=== PATIENT | male | born 1945 | race Caucasian/White ===

== ENCOUNTER → 2018-03-25 | Outpatient (REF) | payer MEDICARE, OTHER ==
[2018-03-25 14:16] LABS: FERRITIN 132 NG/ML (26-388); IRON (FE) 45 UG/DL (65-175); PERCENT SATURATION 12.3 % (19.7-50.0); TOTAL IRON BINDING CAPACITY 367 UG/DL (250-450)
== END ==
LOC: M LAB REF 13:48
DX: N18.3 Chronic kidney disease, stage 3 (moderate) (principal); D63.1 Anemia in chronic kidney disease
CPT/HCPCS: 83550

== ENCOUNTER → 2018-04-03 | Outpatient (CLI) | payer MEDICARE, OTHER | LOC: M RAD 14:33 | DX: N18.3 Chronic kidney disease, stage 3 (moderate) (principal) | CPT/HCPCS: 76775 ==

== ENCOUNTER 2020-03-14 17:16 | Inpatient (IN) | payer MEDICARE, OTHER ==
[~2020-03-14] VITALS: Ht 177.8 cm; Wt 120.3 kg
[2020-03-14 19:03] LABS: HEMATOCRIT 36.6 % (42.0-52.0); HEMOGLOBIN 11.5 g/dl (13.5-17.5); MEAN CORPUSCULAR HGB CONC 31.4 g/dl (32.0-36.5); MEAN CORPUSCULAR VOLUME 92.4 fl (80.0-96.0); RED BLOOD COUNT 3.96 10^6/uL (4.30-6.10); WHITE BLOOD COUNT 6.7 10^3/uL (4.0-10.0)
[2020-03-14 19:23] LABS: PLATELET COUNT, AUTOMATED 97 10^3/uL (150-450)
[2020-03-14 19:32] LABS: ALBUMIN 3.9 GM/DL (3.2-5.2); ALT/SGPT 27 U/L (12-78); BILIRUBIN,DIRECT 0.3 MG/DL (0.0-0.2); BILIRUBIN,TOTAL 1.2 MG/DL (0.2-1.0); BLOOD UREA NITROGEN 28 MG/DL (7-18); CALCIUM LEVEL 9.6 MG/DL (8.8-10.2); CARBON DIOXIDE LEVEL 29 MEQ/L (21-32); CHLORIDE LEVEL 108 MEQ/L (98-107); CK-MB VALUE MASS 6.3 NG/ML (<3.6); CPK CREATINE PHOSPHOKINASE 245 U/L (39-308); CREATININE FOR GFR 1.73 MG/DL (0.70-1.30); GLOMERULAR FILTRATION RATE 41.3 (>42); GLUCOSE, FASTING 125 MG/DL (70-100); MB/CK RELATIVE INDEX 2.57 (< OR =4); NT-PRO BNP 919 PG/ML (<125); POTASSIUM SERUM 3.9 MEQ/L (3.5-5.1); SODIUM LEVEL 143 MEQ/L (136-145); TOTAL PROTEIN 7.3 GM/DL (6.4-8.2); TROPONIN I < 0.02 NG/ML (< 0.10)
[2020-03-14] MEDS ORDERED: DICL1GEL3 TOP ×2 (20:14→23:23)
[2020-03-14] MEDS ORDERED: KETO0.02 OP (20:14)
[2020-03-14] MEDS ORDERED: LOSA50TA88 PO (20:14)
[2020-03-14] MEDS ORDERED: ATEN50TA2 PO (20:14)
[2020-03-14] MEDS ORDERED: PIOG1TAB55 PO (20:14)
[2020-03-14] MEDS ORDERED: HYDR25TAB PO (20:14)
[2020-03-14] MEDS ORDERED: GLIP10TA PO (20:14)
[2020-03-14] MEDS ORDERED: B-12100021 PO (20:14)
[2020-03-14] MEDS ORDERED: LOSA100T50 PO (20:14)
[2020-03-14] MEDS ORDERED: FLOM0.4C39 PO (20:14)
[2020-03-14] MEDS ORDERED: LOSARTAN 50MG TABLET PO SCH (21:00)
--- NOTE | 2020-03-14 21:05 | REPVR ---
PROCEDURE INFORMATION: Exam: CT Chest Without Contrast Exam date and time: 03/14/2020 8:34 PM Age: 74 years old Clinical indication: Chest pain; Additional info: SOB, elevated bnp TECHNIQUE: Imaging protocol: Computed tomography of the chest without contrast. 3D rendering: MIP and/or 3D reconstructed images were created by the technologist. Radiation optimization: All CT scans at this facility use at least one of these dose optimization techniques: automated exposure control; mA and/or kV adjustment per patient size (includes targeted exams where dose is matched to clinical indication); or iterative reconstruction. COMPARISON: No relevant prior studies available. FINDINGS: Lungs: Patchy consolidation in the left lung base and mild basilar atelectasis. Pleural space: There are moderate bilateral pleural effusions. No pneumothorax. Calcified pleural plaques are noted in both hemithoraces. Heart: Advanced coronary artery atherosclerotic disease. Normal heart size. No pericardial effusion. Aorta: Unremarkable. No aortic aneurysm. Lymph nodes: Unremarkable. No enlarged lymph nodes. Bones/joints: There are advanced degenerative changes in the spine and pelvis. Soft tissues: Unremarkable. IMPRESSION: 1. Moderate bilateral pleural effusions with left basilar airspace consolidation. 2. Advanced coronary artery atherosclerotic disease. Electronically signed by: Rayshawn Tucker On 03/14/2020 21:04:57 PM
[2020-03-14 22:30] LABS: ABG BASE EXCESS 0.2 (-2.0-2.0); ABG HCO3 25.1 MEQ/L (22.0-26.0); ABG O2 SATURATION 94.1 % (95.0-99.0); ABG PARTIAL PRESSURE CO2 41.9 mmHg (35.0-45.0); ABG PARTIAL PRESSURE O2 73.7 mmHg (75.0-100.0); ABG STANDARD HCO3 24.6 MEQ/L (22.0-26.0); ABG TOTAL CO2 26.4 MEQ/L (23.0-31.0); ABG pH (ARTERIAL) 7.396 UNITS (7.350-7.450)
[2020-03-14] MEDS ORDERED: MOM 30ML SUSPENSION UDC PO PRN (23:00)
[2020-03-14] MEDS ORDERED: FUROSEMIDE 100MG/10ML VIAL (J1940) IV ONE (23:00)
[2020-03-14] MEDS: HumaLOG INSULIN (NovoLOG) PER UNIT SC SCH (23:12)
[2020-03-14] MEDS ORDERED: DEXTROSE 50% 50 ML SYRINGE IV PRN (23:15)
[2020-03-14] MEDS ORDERED: GLUCAGON INJ 1MG VIAL SC PRN (23:15)
[2020-03-14] MEDS ORDERED: GLUCOSE 4GM CHEW TABLET PO PRN (23:15)
[2020-03-14] MEDS ORDERED: KETO0.02 OU (23:23)
[2020-03-14] MEDS ORDERED: [UNRECOGNIZED DRUG - CODE] PO (23:23)
[2020-03-14 23:48] VITALS: BP 161/74
[2020-03-15] MEDS ORDERED: LevoFLOXacin IV 500 MG in IV 1 EA IV ONE (00:15)
[2020-03-15] MEDS: atenoloL 50 MG TAB PO SCH ×3 (00:22→20:24)
--- NOTE | 2020-03-15 00:48 | HPEPDOC ---
General Date of Admission 03/14/20 Date of Service: Mar 14, 2020 Chief Complaint The patient is a 74-year-old male admitted with a reason for visit of General Med Complaint. History of Present Illness 74 year old male with PMH of CML, Morbid obesity, SWATHI on CPAP, Chronic hypoxic respiratory failure, Dm, Hypertension, CAD , Hyperlipidemia, BPH, vit B[facility], spends his rubio in [place] came up from [place] on January 13 and was then at his usual state of health. He had a sleep study in Oct at [place] and got a new CPAP machine with oxygen at night with the CPAP. He has been using CPAP since 2002 with oxygen for several years. He started having progressively increasing SOB on exertion for the past 1 month. He was unable to do any yard work any more even walking around the house made him SOB. This was not associated with chest pain or cough. He [facility] then about 3 weeks ago people from the oxygen company came to his home and walked him about and checked his oxygen levels. He reported it had gone down to 84%- 85%. Then he was started on oxygen during the day. However he was given only small tanks which would not last for more than 1 hour so he has been able to go out anywhere as removing the oxygen made him very SOB within a few minutes. As his symptoms has continued to worsen inspite of using oxygen 24 x 7 he went to the urgent care. There CXR showed bilateral pleural effusion so was sent to ED for evaluation. CT chest in the ED showed Moderate bilateral pleural effusions with bilateral atelectasis and left basilar airspace consolidation, Advanced coronary artery atherosclerotic disease. Labs showed elevated creatinine at 1.7, platelet of 97. He was admitted for acute CHF and possibly left lower lobe pneumonia. Home Medications Scheduled Atenolol (Atenolol) 50 Mg Tablet, 50 MG PO BID, (Reported) Cyanocobalamin (Vitamin B-12) (B-12) 1,000 Mcg Tablet, 1,000 MCG PO DAILY, (Reported) Dasatinib (Sprycel) 50 Mg Tablet, 50 MG PO QHS, (Reported) Furosemide (Furosemide) 40 Mg Tablet, 40 MG PO DAILY Glipizide (Glipizide) 10 Mg Tablet, 10 MG PO BID, (Reported) Hydrochlorothiazide (Hydrochlorothiazide) 25 Mg Tablet, 12.5 MG PO DAILY, (Reported) Ketotifen Fumarate (Ketotifen Fumarate) 5 Ml Drops, 1 DROP OU BID, (Reported) Losartan Potassium (Losartan Potassium) 50 Mg Tablet, 50 MG PO BID, (Reported) Pioglitazone HCl (Pioglitazone HCl) 45 Mg Tablet, 45 MG PO DAILY, (Reported) Tamsulosin HCl (Flomax) 0.4 Mg Capsule, 0.4 MG PO DAILY, (Reported) Scheduled PRN Diclofenac Sodium (Diclofenac Sodium) 1% 100GM Gel..gram., 4 GM TOP QID PRN for PAIN, (Reported) USES ON HIPS OR BACK NEEDED Allergies Coded Allergies: Penicillins (Verified Allergy, Severe, 03/14/20) Hives Past Medical History Medical History CML , Morbid obesity , SWATHI on CPAP, Pleural plaques , Chronic hypoxic respiratory failure on home oxygen , CAD s/p cardiac cath x 2 , Hypertension , Diabetes, Hyperlipidemia, CKD , BPH , Vit B 12 def Surgical History tonsillectomy, cholecystectomy, appendectomy, cardiac cath x 2, surgery on the big toe bone removed Family History Significant Family History: Diabetes, Hypertension Social History * Smoker: former Smoker Alcohol: Denies (used t be a heavy drinker quit 35 yearas ago. ) Drugs: denies A-FIB/CHADSVASC A-FIB History Current/History of A-Fib/PAF?: No Review of Systems Constitutional: Denies: Chills, Fever, Night Sweats Eyes: Denies: Pain, Vision change ENT: Denies: Head Aches, Ear Pain, Dysphagia Skin: Denies: Rash, Lesions, Breakdown Pulmonary: Reports: Dyspnea; Denies: Cough, Pleuritic Chest Pain Cardiovascular: Denies: Chest Pain, Palpitations, Orthopnea, Paroxysmal Noc. Dyspnea, Lt Headedness Gastrointestinal: Denies: Nausea, Vomiting, Abdominal Pain, Diarrhea Genitourinary: Reports: Frequency; Denies: Dysuria, Incontinence, Retention Hematologic: Denies: Bruising, Bleeding Excessively Neurological: Denies: Weakness, Numbness, Change in speech, Confusion Physical Examination General Exam: Positive: Alert, Cooperative, No Acute Distress Eye Exam: Positive: PERRLA, Conjunctiva & lids normal, EOMI, Other Eye Symptoms (Periorbital swelling) ENT Exam: Positive: Atraumatic, Mucous membr. moist/pink, Pharynx Normal Neck Exam: Positive: Supple, JVD; Negative: thyromegaly Chest Exam: Positive: Diminished (at both the bases) Heart Exam: Positive: Rate Normal, Regular Rhythm, Normal S1, Normal S2; Negative: Murmurs, Rubs Telemetry: Positive: No significant arrhythmia Abdomen Exam: Positive: Normal bowel sounds, Soft, Other (obese, sacral edema present); Negative: Tenderness Extremity Exam: Positive: Edema (bipedal pitting edema 2+), Normal pulses; Negative: Clubbing, Cyanosis Skin Exam: Positive: Nl turgor and temperature, Other skin issue (bilateral chronic stasis changes); Negative: Breakdown, Lesion Neuro Exam: Positive: Normal Speech, Strength at 5/5 X4 ext, Normal Tone Psych Exam: Positive: Memory Intact, Oriented x 3 Vital Signs Vital Signs Date Time Temp Pulse Resp B/P (MAP) Pulse Ox O2 Delivery O2 Flow Rate FiO2 03/14/20 20:00 68 20 142/70 (94) 99 Nasal Cannula 3.0 03/14/20 17:20 98.7 Laboratory Data Labs 24H Laboratory Tests 2 03/14/20 18:40: Nucleated Red Blood Cells % (auto) 0.0, Immature Platelet Fraction 6.1, Anion Gap 6L, Glomerular Filtration Rate 41.3L, Calcium Level 9.6, Total Bilirubin 1.2H, Direct Bilirubin 0.3H, Aspartate Amino Transf (AST/SGOT) 29, Alanine Ami notransferase (ALT/SGPT) 27, Alkaline Phosphatase 104, Total Creatine Kinase 245, Creatine Kinase MB 6.3H, Creatine Kinase MB Relative Index 2.57, Troponin I < 0.02, XH-Fkz-V-Type Natriuretic Peptide 919H, Total Protein 7.3, Albumin 3.9, Albumin/Globulin Ratio 1.1 03/14/20 18:41: Lactic Acid Level 0.9 CBC/BMP Laboratory Tests 03/14/20 18:40 Microbiology Microbiology 03/14/20 Respiratory Virus Panel (PCR) (ADAL) - Final, Complete 03/14/20 Blood Culture, Received Pending 03/14/20 Blood Culture, Received Pending Assessment/Plan 74 year old male with PMH of CML, Morbid obesity, SWATHI on CPAP, Chronic hypoxic respiratory failure, Dm, Hypertension, CAD , Hyperlipidemia, BPH, vit B12 def follows at the [facility], spends his [place] in [place] came up from [place] on January 13 and was then at his usual state of health. He had a sleep study in Oct at [place] and got a new CPAP machine with oxygen at night with the CPAP. He has been using CPAP since 2002 with oxygen for several years. He started having progressively increasing SOB on exertion for the past 1 month. He was unable to do any yard work any more even walking around the house made him SOB. This was not associated with chest pain or cough. He called his [facility] doctors several times then about 3 weeks ago people from the oxygen company came to his home and walked him about and checked his oxygen levels. He reported it had gone down to 84%- 85%. Then he was started on oxygen during the day. However he was given only small tanks which would not last for more than 1 hour so he has been able to go out anywhere as removing the oxygen made him very SOB within a few minutes. As his symptoms has continued to worsen inspite of using oxygen 24 x 7 he went to the urgent care. There CXR showed bilateral pleural effusion so was sent to ED for evaluation. CT chest in the ED showed Moderate bilateral pleural effusions with bilateral atelectasis and left basilar airspace consolidation, Advanced coronary artery atherosclerotic disease. Labs showed elevated creatinine at 1.7, platelet of 97. He was admitted for acute CHF and possibly left lower lobe pneumonia. Acute CHF CT chest with bilateral pleural effusion, clinically with bipedal edema, sacral edema and periorbital edema will start IV lasix daily weight, 2 l fluid restriction Echo. cardiac makers repeat in 8 hours. Acute on Chronic hypoxic respiratory failure ongoing for the past 3 weeks possibly due to CHF continue oxygen supplementation Rule out pneumonia there is some left lower lobe patchy infiltrates so will cover with levofloxacin though this may be just atelectasis/ fluid also as there is no fever or elevated WBC resp panel negative. blood cultures have been ordered. No sputum production. CKD creatinine possibly at baseline we do not have any recent values. SWATHI/ morbid obesity continue CPAP with oxygen Hypertension continue atenolol, losartan with hold parameters. diuretics. Hyperlipidemia continue statin BPH flomax DM glipizide continued, hold pioglitazone, lispro sliding scale. CAD no stents continue statin, atenolol. CML can continue home med if available. Thrombocytopenia ? cause will give heparin for now will stop if drops below 70 K. Plan / VTE VTE Prophylaxis Ordered?: Yes ERICA HAMPTON MD Mar 14, 2020 22:10
[2020-03-15 02:34] LABS: CK-MB VALUE MASS 5.1 NG/ML (<3.6); CPK CREATINE PHOSPHOKINASE 211 U/L (39-308); MB/CK RELATIVE INDEX 2.42 (< OR =4); TROPONIN I < 0.02 NG/ML (< 0.10)
--- NOTE | 2020-03-15 03:13 | REPVR ---
PROCEDURE INFORMATION: Exam: US Duplex Lower Extremity Veins, Bilateral Exam date and time: 03/15/2020 3:04 AM Age: 74 years old Clinical indication: Other: SOB; Additional info: SOB with leg swelling TECHNIQUE: Imaging protocol: Real-time duplex ultrasound of the extremities with 2-D smith scale, color Doppler flow and spectral waveform analysis with image documentation. Complete exam focused on the bilateral lower extremity veins. COMPARISON: No relevant prior studies available. FINDINGS: Right deep veins: Unremarkable. The common femoral, femoral, proximal profunda femoral and popliteal veins are patent without thrombus. Normal Doppler waveforms. Normal compressibility and/or augmentation response. Right superficial veins: Saphenofemoral junction is patent without thrombus. Left deep veins: Unremarkable. The common femoral, femoral, proximal profunda femoral and popliteal veins are patent without thrombus. Normal Doppler waveforms. Normal compressibility and/or augmentation response. Left superficial veins: Saphenofemoral junction is patent without thrombus. Soft tissues: Unremarkable. IMPRESSION: No evidence of deep vein thrombosis. Electronically signed by: Rayshawn Tucker On 03/15/2020 03:12:58 AM
[2020-03-15 04:00] VITALS: BP 153/71
[2020-03-15 05:09] LABS: BASO % 0.6 % (0.0-1.0); EOS # 0.3 10^3/uL (0.0-0.5); EOS % 4.6 % (0.0-3.0); HEMATOCRIT 35.8 % (42.0-52.0); HEMOGLOBIN 11.2 g/dl (13.5-17.5); LYMPH # 1.1 10^3/uL (1.5-5.0); LYMPH % 16.2 % (24.0-44.0); MEAN CORPUSCULAR HEMOGLOBIN 28.9 pg (27.0-33.0); MEAN CORPUSCULAR HGB CONC 31.3 g/dl (32.0-36.5); MEAN CORPUSCULAR VOLUME 92.3 fl (80.0-96.0); MONO # 0.7 10^3/uL (0.0-0.8); MONO % 10.1 % (0.0-5.0); NEUTROPHILS # 4.6 10^3/uL (1.5-8.5); NEUTROPHILS % 68.2 % (36.0-66.0); RED BLOOD COUNT 3.88 10^6/uL (4.30-6.10); WHITE BLOOD COUNT 6.7 10^3/uL (4.0-10.0)
[2020-03-15 05:24] LABS: PLATELET COUNT, AUTOMATED 91 10^3/uL (150-450)
[2020-03-15 05:32] LABS: CALCIUM LEVEL 9.2 MG/DL (8.8-10.2); CREATININE FOR GFR 1.55 MG/DL (0.70-1.30); GLOMERULAR FILTRATION RATE 46.9 (>42); MAGNESIUM LEVEL 2.1 MG/DL (1.8-2.4); POTASSIUM SERUM 3.8 MEQ/L (3.5-5.1)
[2020-03-15] MEDS: HumaLOG INSULIN (NovoLOG) PER UNIT SC SCH ×4 (07:30→20:17)
[2020-03-15 08:00] VITALS: BP 133/60
[2020-03-15] MEDS: LOSARTAN 50MG TABLET PO SCH (08:07)
[2020-03-15] MEDS: ATORVASTATIN 20 MG TAB PO SCH (08:07)
[2020-03-15] MEDS: FUROSEMIDE 100MG/10ML VIAL (J1940) IV SCH ×2 (08:08→16:04)
[2020-03-15] MEDS: TAMSULOSIN 0.4 MG CAP PO SCH (08:08)
[2020-03-15] MEDS: CYANOCOBALAMIN 500 MCG TAB PO SCH (08:08)
[2020-03-15] MEDS: glipiZIDE (GLUCOTROL) 5 MG TAB PO SCH ×2 (08:08→17:38)
[2020-03-15] MEDS: HEPARIN SOD (PORCINE) 5000UNITS/ML VIAL (J1644 PER 1000UNITS) SC SCH ×2 (08:09→20:25)
--- NOTE | 2020-03-15 10:24 | IPN ---
DATE OF SERVICE: 03/15/2020 Andrei is seen in progressive care unit (PCU). He is [facility] admitted with acute congestive heart failure. I do not have his echocardiogram or any of his testing back yet. He feels markedly improved. His legs are less edematous after having a 3-liter diuresis yesterday, and he no longer is dyspneic. PHYSICAL EXAMINATION: 153/71, pulse of 65, 94% oxygen (O2) saturation on 2 liters. General appearance: Alert, conversant, no distress. No jugular venous distention (JVD). Lungs: Decreased breath sounds both bases. Heart: Regular rate and rhythm. Abdomen: Soft, nontender. Trace to 1+ peripheral edema. LABORATORIES: White count 6.7, hemoglobin 11.2, platelets 91. Sodium 139, potassium 3.8, BUN 27, creatinine 1.5, glucose 99. IMPRESSION: 1. Congestive heart failure. Improved with diuresis. Echocardiogram is pending. 2. Chronic hypoxic respiratory failure. He is on supplemental oxygen, which [facility] through the [facility]. 3. Obstructive sleep apnea (SWATHI). He is on continuous positive airway pressure (CPAP). Recently got a new machine through the [place]. 4. Diabetes. On pioglitazone as an outpatient. This should be discontinued, as pioglitazone medications are contraindicated with congestive heart failure. He is on sulfonylurea, glipizide 10 mg daily. He would be better served by SGL T2 medication, which is shown to reduce cardiovascular events and reduce mortality in patients with heart failures. So, we will make that change while he is here. 5. Benign prostatic hypertrophy (BPH). Continue his tamsulosin. Anticipate discharge tomorrow. ADDENDUM: Apparently we do not have SGL T2 mediating medications on formulary. I strongly recommend that on discharge his glipizide be discontinued and be started on something such as Jardiance 10 mg daily. His pioglitazone has already been discontinued, and this should not be restarted on discharge.
[2020-03-15 12:00] VITALS: BP 141/89
[2020-03-15 16:00] VITALS: BP 137/63
[2020-03-15 20:00] VITALS: BP 140/70
[2020-03-15] MEDS ORDERED: ENTER DRUG NAME HERE (PATIENT'S OWN MED) PO SCH (21:00)
[2020-03-16] VITALS: BP 116/64
[2020-03-16 04:00] VITALS: BP 117/59
[2020-03-16 05:35] LABS: BASO # 0.1 10^3/uL (0.0-0.2); BASO % 0.7 % (0.0-1.0); EOS # 0.3 10^3/uL (0.0-0.5); EOS % 4.2 % (0.0-3.0); HEMOGLOBIN 11.3 g/dl (13.5-17.5); LYMPH # 1.6 10^3/uL (1.5-5.0); LYMPH % 21.5 % (24.0-44.0); MEAN CORPUSCULAR HEMOGLOBIN 28.5 pg (27.0-33.0); MEAN CORPUSCULAR HGB CONC 31.4 g/dl (32.0-36.5); MEAN CORPUSCULAR VOLUME 90.9 fl (80.0-96.0); MONO # 0.7 10^3/uL (0.0-0.8); MONO % 9.3 % (0.0-5.0); NEUTROPHILS # 4.6 10^3/uL (1.5-8.5); RED BLOOD COUNT 3.96 10^6/uL (4.30-6.10); WHITE BLOOD COUNT 7.2 10^3/uL (4.0-10.0)
[2020-03-16 05:38] LABS: PLATELET COUNT, AUTOMATED 95 10^3/uL (150-450)
[2020-03-16 05:52] LABS: CALCIUM LEVEL 9.3 MG/DL (8.8-10.2); CREATININE FOR GFR 1.94 MG/DL (0.70-1.30); GLOMERULAR FILTRATION RATE 36.2 (>42); POTASSIUM SERUM 3.4 MEQ/L (3.5-5.1)
[2020-03-16] MEDS: HumaLOG INSULIN (NovoLOG) PER UNIT SC SCH ×2 (07:06→12:00)
[2020-03-16 08:00] VITALS: BP 138/67
[2020-03-16 08:09] VITALS: BP 138/67
[2020-03-16] MEDS: atenoloL 50 MG TAB PO SCH (08:09)
[2020-03-16] MEDS: ATORVASTATIN 20 MG TAB PO SCH (08:10)
[2020-03-16] MEDS: TAMSULOSIN 0.4 MG CAP PO SCH (08:10)
[2020-03-16] MEDS: glipiZIDE (GLUCOTROL) 5 MG TAB PO SCH (08:10)
[2020-03-16] MEDS: CYANOCOBALAMIN 500 MCG TAB PO SCH (08:10)
[2020-03-16] MEDS: LOSARTAN 50MG TABLET PO SCH (08:10)
[2020-03-16] MEDS: HEPARIN SOD (PORCINE) 5000UNITS/ML VIAL (J1644 PER 1000UNITS) SC SCH (08:11)
[2020-03-16] MEDS: FUROSEMIDE 100MG/10ML VIAL (J1940) IV SCH (08:11)
[2020-03-16] MEDS ORDERED: POTASSIUM CHLORIDE 10 MEQ SR TABLET PO ONE ×2 (08:45→12:45)
--- NOTE | 2020-03-16 10:03 | ECHO ---
DATE OF PROCEDURE: 03/15/2020 AGE: 74. GENDER: Male. Height 70 inches, weight 277 pounds, body surface area 2.4 sq m. Inpatient, progressive care unit (PCU), room 3224. REFERRING PHYSICIAN: Dr. Wen Pearce INDICATION: Heart failure. MEASUREMENTS: 2D measurements: RV - 4.2 cm LV - 5.0 cm Septum 1.2 cm Posterior wall 1.2 cm Aortic root 4.2 cm LA - 4.4 cm LVEF 65% Doppler measurements: AV - 1.22 m/s LVOT - 0.91 m/s LVOT diameter 2.2 cm MV - E 102 A 96 EA ratio 1.1 Early mitral deceleration time 197 ms E prime medial 6.4 A prime medial 8 E prime lateral 6.7 Average E/E prime ratio 15.7/PCWP 21.4 mmHg PV - 1.15 m/s Pulmonary artery acceleration time 127 ms PASP 24 mmHg IVC - 1.9 cm COMMENTS: Sinus rhythm at 61 beats per minute (BPM). Interventricular conduction disturbance. M-mode and two-dimensional echocardiography was performed with pulsed, continuous wave, color flow, and tissue Doppler studies. Borderline concentric left ventricular hypertrophy with normal wall motion. Mildly dilated left atrium with grade 2 LV diastolic dysfunction and elevated estimated mean left atrial pressure. Borderline right heart chamber enlargement with normal wall motion but current estimated pulmonary arterial pressure upper limits of normal. Normal inferior vena cava (IVC) size and collapse against an elevated central venous pressure. Mildly dilated aortic root. Normal-appearing and functioning aortic valve. Normal-appearing and functioning mitral valve. Normal-appearing and functioning tricuspid valve. No apparent intracardiac mass or pericardial effusion.
[2020-03-16] MEDS ORDERED: FURO40TA2 PO (11:45)
[2020-03-16 12:00] VITALS: BP 136/74
--- NOTE | 2020-03-16 17:50 | DS.PDOC ---
Discharge Summary General Date of Admission Mar 14, 2020 at 22:58 Date of Discharge 03/16/2020 Attending Physician: LUZ CUTLER MD Discharge Summary PROCEDURES PERFORMED DURING STAY: None ADMITTING DIAGNOSES: 1. Acute CHF. 2. Acute on chronic hypoxic respiratory failure. 3. CKD 4. SWATHI 5. Hypertension. 6. Hyperlipidemia. 7. BPH. 8. Diabetes mellitus. 9. CAD 10. CML. 11. Thrombocytopenia DISCHARGE DIAGNOSES: 1. Acute exacerbation of CHF with grade 2 diastolic dysfunction 2. Acute on chronic hypoxic respiratory failure. 3. CKD 4. SWATHI 5. Hypertension. 6. Hyperlipidemia. 7. BPH. 8. Diabetes mellitus. 9. CAD 10. CML. 11. Thrombocytopenia COMPLICATIONS/CHIEF COMPLAINT: CHF. HISTORY OF PRESENT ILLNESS: 74-year-old male who returned from [place] on January 13 in his usual state of health, presented with progressively worsening shortness of breath over the past one month. He notices unable to do any yard work and started even having difficulty just walking around his house due to shortness of breath. He did not have any chest pain or cough. He states he called his [facility] doctors who had his oxygen company, check his oxygen saturations at home which were 84-85%. He was started on daytime oxygen for this. He continued to have shortness of breath and presented to urgent care facility where a chest x-ray showed bilateral pleural effusions and [facility], chest CT showed moderate bilateral pleural effusions with bilateral atelectasis and left basilar airspace consolidation. On examination, he was noted to have bipedal edema, sacral edema, and periorbital edema. HOSPITAL COURSE: Patient was admitted to the hospital and started on IV Lasix or acute exacerbation of CHF. Echocardiogram revealed grade 2 diastolic dysfunction of the left ventricle, with a normal EF. He was continued on oxygen supplementation for his acute on chronic hypoxic respiratory failure. He was initially started on levofloxacin due to concern for pneumonia, and this was discontinued as he did not have any clinical evidence of pneumonia. Over the course of his admission, his source of breath improved with diuresis of greater than 3 L. On discharge, the patient was restarted on oral Lasix, which she had not been taking over the past couple of months as it had been discontinued by his outpatient provider. The patient will establish care with a local provider in order to determine if this is the appropriate dose of Lasix for him. DISCHARGE MEDICATIONS: Please see below. ALLERGIES: Please see below. PHYSICAL EXAMINATION ON DISCHARGE: VITAL SIGNS: Please see below. GENERAL: Alert, comfortable, in no acute distress HEENT: Normocephalic, atraumatic, sclera anicteric, conjunctiva clear, moist mucous membranes NECK: Supple, no JVD CARDIOVASCULAR: Regular rate and rhythm, normal S1 and S2. No murmurs, rubs, or gallops RESPIRATORY: Clear to auscultation bilaterally with equal air entry bilaterally. No wheezing, rhonchi, or rales. ABDOMEN: Soft, nontender, nondistended, bowel sounds present EXTREMITIES: Trace edema bilateral lower extremities. Pulses 2+/4 in bilateral upper and lower extremities SKIN: [place], warm, dry NEUROLOGIC: Alert and oriented 3 to person, place and time. No focal deficits appreciated PSYCHIATRIC: Mood and affect appropriate LABORATORY DATA: Please see below. IMAGING: Chest CT: Moderate bilateral pleural effusions with left basilar airspace consolidation. Advance coronary artery atherosclerotic disease. Lower extremity duplex ultrasound: No evidence of deep pain thrombosis. PROGNOSIS: Fair ACTIVITY: As tolerated. DIET: Consistent carbohydrate DISCHARGE PLAN: Discharge home on oral Lasix DISPOSITION: Home, Self-Care. DISCHARGE INSTRUCTIONS: 1. Please follow up with a local PCP to establish care in the next 7-10 days. 2. Please olive picker and take the Lasix. ITEMS TO FOLLOWUP ON ON OUTPATIENT: 1. Grade 2 Diastolic CHF 2. Advanced CAD seen on chest CT, may benefit from cardiac stress testing. DISCHARGE CONDITION: Stable. TIME SPENT ON DISCHARGE: Greater than 35 minutes. Vital Signs/I&Os Vital Signs Date Time Temp Pulse Resp B/P (MAP) Pulse Ox O2 Delivery O2 Flow Rate FiO2 03/16/20 12:00 97.4 61 18 136/74 (94) 95 Nasal Cannula 2.0 I&O- Last 24 Hours up to 6 AM 03/16/20 06:00 Intake Total 1420 ml Output Total 2125 ml Balance -705 ml Laboratory Data Labs 24H Laboratory Tests 2 03/15/20 20:13: Bedside Glucose (Misc Panel) 127H 03/16/20 05:05: Immature Granulocyte % (Auto) 0.3, Neutrophils (%) (Auto) 64.0, Lymphocytes (%) (Auto) 21.5L, Monocytes (%) (Auto) 9.3H, Eosinophils (%) (Auto) 4.2H, Basophils (%) (Auto) 0.7, Neutrophils # (Auto) 4.6, Lymphocytes # (Auto) 1.6, Monocytes # (Auto) 0.7, Eosinophils # (Auto) 0.3, Basophils # (Auto) 0.1, Nucleated Red Blood Cells % (auto) 0.0, Immature Platelet Fraction 6.3, Anion Gap 7L, Glomerular Filtration Rate 36.2L, Calcium Level 9.3 03/16/20 11:44: Bedside Glucose (Misc Panel) 140H 03/16/20 11:45: Bedside Glucose (Misc Panel) 131H CBC/BMP Laboratory Tests 03/16/20 05:05 FSBS Laboratory Tests Test 03/15/20 20:13 03/16/20 11:44 03/16/20 11:45 Range/Units Bedside Glucose (Misc Panel) 127 140 131 83-110 MG/DL Microbiology Microbiology 03/14/20 Respiratory Virus Panel (PCR) (ADAL) - Final, Complete 03/14/20 Blood Culture - Preliminary, Resulted No growth after 24 hours . All specim... 03/14/20 Blood Culture - Preliminary, Resulted No growth after 24 hours . All specim... Discharge Medications Scheduled Atenolol (Atenolol) 50 Mg Tablet, 50 MG PO BID, (Reported) Cyanocobalamin (Vitamin B-12) (B-12) 1,000 Mcg Tablet, 1,000 MCG PO DAILY, (Reported) Dasatinib (Sprycel) 50 Mg Tablet, 50 MG PO QHS, (Reported) Furosemide (Furosemide) 40 Mg Tablet, 40 MG PO DAILY Glipizide (Glipizide) 10 Mg Tablet, 10 MG PO BID, (Reported) Hydrochlorothiazide (Hydrochlorothiazide) 25 Mg Tablet, 12.5 MG PO DAILY, (Reported) Ketotifen Fumarate (Ketotifen Fumarate) 5 Ml Drops, 1 DROP OU BID, (Reported) Losartan Potassium (Losartan Potassium) 50 Mg Tablet, 50 MG PO BID, (Reported) Pioglitazone HCl (Pioglitazone HCl) 45 Mg Tablet, 45 MG PO DAILY, (Reported) Tamsulosin HCl (Flomax) 0.4 Mg Capsule, 0.4 MG PO DAILY, (Reported) Scheduled PRN Diclofenac Sodium (Diclofenac Sodium) 1% 100GM Gel..gram., 4 GM TOP QID PRN for PAIN, (Reported) USES ON HIPS OR BACK NEEDED Allergies Coded Allergies: Penicillins (Verified Allergy, Severe, 03/14/20) Hives GME ATTESTATION GME ATTESTATION My faculty preceptor for this patient encounter was physically present during the encounter and was fully available. All aspects of the patient interview, examination, medical decision making process, and medical care plan development were reviewed and approved by the faculty preceptor. The faculty preceptor is aware and concurs with the plan as stated in the body of this note and will attest to such by his/her cosignature. ATTENDING NOTE Patient was seen and examined by me. With the above assessment and plan JUNE DEE D.O. Mar 16, 2020 17:50 LUZ CUTLER MD Mar 17, 2020 15:58
== END 2020-03-16 15:02 | disposition home or self-care (01) | DRG 291 ==
LOC: M ED 17:16 → M ED INP 22:58 → ENRESERV 23:16 → M PCU 23:48
PROVIDERS: ADMIT Internal Medicine Nephrology; ATTEND Internal Medicine
DX: I13.0 Hypertensive heart and chronic kidney disease with heart failure and stage 1 through stage 4 chronic kidney disease, or unspecified chronic kidney disease (principal); I50.33 Acute on chronic diastolic (congestive) heart failure; J96.21 Acute and chronic respiratory failure with hypoxia; C92.10 Chronic myeloid leukemia, BCR/ABL-positive, not having achieved remission; N18.3 Chronic kidney disease, stage 3 (moderate); G47.33 Obstructive sleep apnea (adult) (pediatric); E78.5 Hyperlipidemia, unspecified; N40.0 Benign prostatic hyperplasia without lower urinary tract symptoms; I25.10 Atherosclerotic heart disease of native coronary artery without angina pectoris; D69.6 Thrombocytopenia, unspecified; E11.9 Type 2 diabetes mellitus without complications; I11.0 Hypertensive heart disease with heart failure; Z79.899 Other long term (current) drug therapy; Z88.0 Allergy status to penicillin; E53.8 Deficiency of other specified B group vitamins; Z87.891 Personal history of nicotine dependence; E66.01 Morbid (severe) obesity due to excess calories

== ENCOUNTER 2022-05-07 13:41 | Emergency (ER) | payer MEDICARE, OTHER ==
[~2022-05-07] VITALS: Ht 177.8 cm; Wt 103.5 kg
[~2022-05-07 13:41] MED LIST: ATEN50TA2 PO; B-12100021 PO; DICL1GEL3 TOP; FLOM0.4C39 PO; FURO40TA2 PO; GLIP10TA PO; HYDR-3490 PO; KETO0.02 OP; KETO0.02 OU; LOSA100T45 PO; LOSA50TA28 PO; PIOG1TAB55 PO; [UNRECOGNIZED DRUG - CODE] PO
[2022-05-07] MEDS ORDERED: PACE200T PO (13:54)
[2022-05-07] MEDS ORDERED: TRAZ-257 PO (13:54)
[2022-05-07] MEDS ORDERED: ELIQ5TAB PO (13:54)
[2022-05-07] MEDS ORDERED: FERR324T21 PO (13:54)
[2022-05-07] MEDS ORDERED: ASCI40TA PO (13:54)
[2022-05-07] MEDS ORDERED: ATOR80TA59 PO (13:54)
[2022-05-07] MEDS ORDERED: ACETAMINOPHEN 500 MG TAB PO ONE (18:10)
[2022-05-07] MEDS ORDERED: LIDOCAINE 5% (LIDODERM) PATCH TD ONE (18:10)
[2022-05-07] MEDS ORDERED: methocarbamoL 750 MG TAB PO ONE (18:10)
[2022-05-07] MEDS ORDERED: TRAM50TA2 PO (18:59)
[2022-05-07] MEDS ORDERED: ASPE4PAD TOP (18:59)
[2022-05-07] MEDS ORDERED: traMADol 50 MG TAB PO ONE (19:00)
[2022-05-07 19:25] VITALS: BP 155/81
[2022-05-07] MEDS ORDERED: **NOTE PATIENT COMMENT** MISC XX SCH (21:00)
== END 2022-05-07 19:27 | disposition home or self-care (01) ==
LOC: M ED 17:15
DX: M54.50 Low back pain, unspecified (principal); E11.9 Type 2 diabetes mellitus without complications; I10 Essential (primary) hypertension; I50.9 Heart failure, unspecified; N18.30 Chronic kidney disease, stage 3 unspecified; E78.5 Hyperlipidemia, unspecified; G47.33 Obstructive sleep apnea (adult) (pediatric); R51.9 Headache, unspecified; Z88.0 Allergy status to penicillin; Z79.899 Other long term (current) drug therapy; Z79.01 Long term (current) use of anticoagulants; F17.200 Nicotine dependence, unspecified, uncomplicated

== ENCOUNTER → 2022-05-09 | Outpatient (CLI) | payer MEDICARE, OTHER ==
[~2022-05-09] MED LIST changes: +ASCI40TA PO; +ASPE4PAD TOP; +ATOR80TA59 PO; +ELIQ5TAB PO; +FERR324T21 PO; +PACE200T PO; +TRAM50TA2 PO; +TRAZ-257 PO
== END ==
LOC: M SOG 13:29
PROVIDERS: ATTEND Orthopaedic Surgery
DX: M25.552 Pain in left hip (principal)